=== PATIENT | female | born 1995 | race Caucasian/White ===

== ENCOUNTER 2016-11-03 18:23 | Emergency (ER) | payer BC ==
[2016-11-03 18:50] LABS: HEMOGLOBIN 12.6 gm/dl (12.3-15.3); RED BLOOD COUNT 4.26 M/UL (4.00-5.10); WHITE BLOOD COUNT 7.6 K/UL (4.5-11.0)
[2016-11-03 19:13] LABS: BUN/CREATININE RATIO 20 (0-10)
== END 2016-11-03 21:10 | disposition home or self-care (01) ==
LOC: ER1 18:23
PROVIDERS: Emergency Medicine
DX: R07.89 Other chest pain (principal)
CPT/HCPCS: 36415; 71010; 80053; 82550; 82553; 83874; 84484; 84703; 85025; 85379; 93005; 99285; Q9963